=== PATIENT | female | born 1965 | race Two or more races ===

== ENCOUNTER 2024-06-16 07:50 | Emergency (ER) | payer BC ==
[~2024-06-16] VITALS: Ht 160 cm; Wt 59.0 kg
[2024-06-16 07:54] VITALS: PULSE 94; O2SAT 97
[2024-06-16 08:02] VITALS: BP 100/64; RESP 16; TEMP 36.8; O2SAT 97
== END 2024-06-16 10:23 | disposition home or self-care (01) ==
LOC: ER 07:50
DX: Z87.01 Personal history of pneumonia (recurrent) (principal); Z88.6 Allergy status to analgesic agent
CPT/HCPCS: 99281